=== PATIENT | female | born 1965 | race Caucasian/White ===

== ENCOUNTER → 2016-09-26 | Day surgery (SDC) | payer OTHER ==
[~2016-09-26] VITALS: Ht 162.6 cm; Wt 79.0 kg
[~2016-09-26] MED LIST: 0.9% Sodium Chloride 1,000 ML IV SCH; AZEL137S11 NS; CETI10CA PO; NPR500T PO; OMEP20CA11 PO; Sodium Chloride LOK Flush 10 mL Syringe IV PRN; fentaNYL-PF 50 mCg/mL 2 mL Inj IVPUSH PRN
[2016-09-26 12:51] VITALS: BP 156/95; PULSE 94; RESP 16; O2SAT 99
--- NOTE | 2016-09-26 14:17 | PCM.ENDCOL ---
Colonoscopy Date of Service: Sep 26, 2016 Physician Kahlil Romano MD Pre Procedure Diagnosis: Screening Post Procedure Dx & Findings: Polyp hemorrhoids diverticuli Procedure Colonoscopy PROCEDURE IN DETAIL: Prep adequate Withdrawal time 20 minutes After unremarkable rectal examination the Olympus video colonoscope was inserted patient's anal canal and was advanced to cecum. Landmarks were identified including the ileocecal valve and appendiceal orifice. Scope was withdrawn systematically. Visualized colonic mucosa showed healthy shiny mucosa with normal healthy-appearing vasculature. In the rectosigmoid junction, there appears to be 1 cm flat polyp with surrounding irritation. The angle was quite sharp. Hot snare was used to remove completely. Patient had diverticuli small size in the sigmoid colon. In the rectum retroflexion was done which showed hemorrhoids. Anal canal was inspected carefully on the way out and hemorrhoids noted. Impression Polyp 1. Complete removal possibly 1 cm. Diverticula Hemorrhoids Recommendation Repeat colonoscopy 3 years Diverticuliar diet A flexible sigmoidoscope in 6 months to revisualize that spot. Presedation Assessment Risks and Benefits Informed consent was obtained from the patient after all risks and benefits including but not limited to drug reaction, infection, pain, bleeding, perforation, as well as alternatives were discussed. Patient monitoring Continuous pulse oximetry, cardiac monitoring, blood pressure monitoring, IV access, and oxygen at 2L per nasal cannula. Periprocedural Fentanyl: Fentanyl 125mcg Incrementally Midazolam: Midazolam 7mg Incrementally Complications There were no periprocedural complications identified. Post Procedure Plan Post Procedure Recommendations 1. Restrict activities today. 2. Resume normal activities in the morning. 3. Resume medications. 4. Patient informed of normal post procedure side effects as bloating, drowsiness, blood streaking in the stool. 5. average risk CRCS. If colon polyps come back as: -Hyperplastic- can repeat colonoscopy in 10 years -Tubular adenoma- repeat colonoscopy in 5 years -Tubulovillous/villous adenoma- repeat colonoscopy in 3 years -If any dysplasia- return to clinic as soon as possible 6. Please don't hesitate to call me with any questions. Kahlil Romano MD Sep 26, 2016 14:17
[2016-09-26 14:23] VITALS: BP 141/84; PULSE 78; RESP 16; O2SAT 98
[2016-09-26 14:31] VITALS: BP 121/70; PULSE 79; RESP 14; O2SAT 99
[2016-09-26 14:42] VITALS: BP 144/92; PULSE 80; RESP 14; O2SAT 98
--- NOTE | 2016-09-29 18:32 | PATH ---
SURGICAL PATHOLOGY Attending Physician:Kahlil Romano M.D. CASE STATUS: Signed Out PATIENT NAME: URSULA ROSADO PID: [id number] : 1965 DATE COLLECTED:09/26/2016 00:00 SPECIMEN: Colon, Polyp CLINICAL HISTORY: 1). RECTO-SIGMOID POLYP FINAL DIAGNOSIS: 1.RECTOSIGMOID POLYP, BIOPSY: HYPERPLASTIC POLYP. ICD10 D12.7 GROSS DESCRIPTION: The specimen is received in one formalin filled container labeled with the patient's name, sublabeled "rectosigmoid polyp" and consists of 2 portions of tissue which aggregate to 0.3 x 0.3 x 0.2 CM. The specimen is entirely submitted in one cassette. 09/27/2016DC MICRO DESCRIPTION: See diagnosis. ICD-9 CODES: CPT CODES: 1: 69651 Electronically Signed Out Gautam Vega MD, Ph.D. [facility] [address], [place] [address] Technical component performed at [facility], [address] [place] [address] Ave[address], [place], [address]
== END | disposition home or self-care (01) ==
LOC: END 00:27
PROVIDERS: ATTEND Internal Medicine
DX: Z12.11 Encounter for screening for malignant neoplasm of colon (principal); K63.5 Polyp of colon; K64.9 Unspecified hemorrhoids; K57.30 Diverticulosis of large intestine without perforation or abscess without bleeding; I10 Essential (primary) hypertension; R73.01 Impaired fasting glucose
CPT/HCPCS: 45385; 99153; G0500; J2250; J3010; J7030